=== PATIENT | female | born 1960 | race African-American/Black ===

== ENCOUNTER 2019-10-20 04:31 | Emergency (ER) | payer OTHER ==
[~2019-10-20] VITALS: Ht 167.6 cm; Wt 80.7 kg
[2019-10-20 05:27] VITALS: BP 144/99
== END 2019-10-20 05:49 | disposition home or self-care (01) ==
LOC: ER 04:37
DX: Z76.0 Encounter for issue of repeat prescription (principal); I10 Essential (primary) hypertension; Z98.890 Other specified postprocedural states; Z88.0 Allergy status to penicillin; Z88.6 Allergy status to analgesic agent

== ENCOUNTER 2019-11-16 12:07 | Emergency (ER) | payer OTHER ==
[~2019-11-16] VITALS: Ht 165.1 cm; Wt 81.6 kg
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
[2019-11-16] MEDS ORDERED: ACETAMINOPHEN 325 MG TABLET PO ONE (12:30)
[2019-11-16] MEDS ORDERED: ACETAMINOPHEN 325 MG TABLET ONE (13:02)
[2019-11-16] MEDS ORDERED: HYDROCODONE/APAP 5/325MG 1 EACH TABLET ONE (13:15)
[2019-11-16] MEDS ORDERED: HYDROCODONE/APAP 5/325MG 1 EACH TABLET PO ONE (13:30)
[2019-11-16 14:33] VITALS: BP 170/97
== END 2019-11-16 14:33 | disposition home or self-care (01) ==
LOC: ER 12:08
DX: S20.212A Contusion of left front wall of thorax, initial encounter (principal); S00.03XA Contusion of scalp, initial encounter; M25.561 Pain in right knee; I10 Essential (primary) hypertension; Z90.5 Acquired absence of kidney; Z88.0 Allergy status to penicillin; Z88.6 Allergy status to analgesic agent; V49.59XA Passenger injured in collision with other motor vehicles in traffic accident, initial encounter; Y93.89 Activity, other specified; Y92.488 Other paved roadways as the place of occurrence of the external cause; Y99.8 Other external cause status
CPT/HCPCS: 71100-TC; 73564-TC

== ENCOUNTER 2020-04-17 04:39 | Emergency (ER) | payer OTHER ==
[~2020-04-17] VITALS: Ht 165.1 cm; Wt 80.7 kg
[2020-04-17 04:53] VITALS: BP 142/75
--- NOTE | 2020-04-17 05:01 | NUR ---
PATIENT RECEIVED PRESCRIPTIONS SELENIUM SULFIDE 2.25% SHAMPOO AND POLTRIM [id number]
== END 2020-04-17 05:16 | disposition home or self-care (01) ==
LOC: ER 04:39
DX: Z76.0 Encounter for issue of repeat prescription (principal); Z98.890 Other specified postprocedural states; Z88.0 Allergy status to penicillin; Z88.6 Allergy status to analgesic agent

== ENCOUNTER 2020-04-17 21:50 | Emergency (ER) | payer OTHER ==
[~2020-04-17] VITALS: Ht 165.1 cm; Wt 80.7 kg
[2020-04-17 21:51] VITALS: BP 134/65
== END 2020-04-17 22:47 | disposition home or self-care (01) ==
LOC: ER 21:51
DX: R21 Rash and other nonspecific skin eruption (principal); Z76.0 Encounter for issue of repeat prescription; Z90.5 Acquired absence of kidney; Z88.0 Allergy status to penicillin; Z88.6 Allergy status to analgesic agent

== ENCOUNTER 2020-07-20 07:21 | Emergency (ER) | payer OTHER ==
[~2020-07-20] VITALS: Ht 170.2 cm; Wt 79.4 kg
[2020-07-20 07:30] VITALS: BP 156/88
--- NOTE | 2020-07-20 07:46 | NUR ---
Rx provided. Patient discharged to home in stable condition. Written and verbal after care instructions given. Patient verbalizes understanding of instruction.
== END 2020-07-20 07:48 | disposition home or self-care (01) ==
LOC: ER 07:28
DX: L03.90 Cellulitis, unspecified (principal); Z76.0 Encounter for issue of repeat prescription; Z90.5 Acquired absence of kidney; Z88.0 Allergy status to penicillin; Z88.6 Allergy status to analgesic agent

== ENCOUNTER 2021-02-07 05:58 | Emergency (ER) | payer OTHER ==
[~2021-02-07] VITALS: Ht 165.1 cm; Wt 72.6 kg
[2021-02-07 06:17] VITALS: BP 157/74
--- NOTE | 2021-02-07 06:20 | NUR ---
PT BIBSELF WANTING permetherin cream and azithromycin REFILL. PT AAOX4 BREATHING EVENLY AND UNLABORED. PT ATTACHED TO MONITOR AND POX. MD AT BEDSIDE FOR EVAL. UPON EVAL, PT SKIN IS WARM, DRY, AND INTACT EXCEPT FOR SOME BLEMISHES ON LOWER LEGS. PT GIVEN BALNKET AND CALL LIGHT WITHIN REACH
[2021-02-07] MEDS ORDERED: AZIT250T PO (06:54)
[2021-02-07] MEDS ORDERED: PERM60CR4 TP (06:54)
--- NOTE | 2021-02-07 07:00 | NUR ---
Patient discharged to home in stable condition. Written and verbal after care instructions given. Patient verbalizes understanding of instruction. Pt ambulatory with a steady gait
== END 2021-02-07 07:00 | disposition home or self-care (01) ==
LOC: ER 05:58
DX: J40 Bronchitis, not specified as acute or chronic (principal); F10.10 Alcohol abuse, uncomplicated; Y90.9 Presence of alcohol in blood, level not specified; Z76.0 Encounter for issue of repeat prescription; Z90.5 Acquired absence of kidney; Z88.0 Allergy status to penicillin; Z88.6 Allergy status to analgesic agent

== ENCOUNTER 2021-04-19 05:40 | Emergency (ER) | payer OTHER ==
[~2021-04-19] VITALS: Ht 167.6 cm; Wt 70.8 kg
[~2021-04-19 05:40] MED LIST: AZIT250T PO; PERM60CR4 TP
[2021-04-19 05:45] VITALS: BP 139/82
[2021-04-19] MEDS ORDERED: TETR-65 PO (06:13)
[2021-04-19] MEDS ORDERED: TETR-66 PO (06:15)
--- NOTE | 2021-04-19 06:27 | NUR ---
Patient discharged to home in stable condition. Written and verbal after care instructions given. Patient verbalizes understanding of instruction.
== END 2021-04-19 06:29 | disposition home or self-care (01) ==
LOC: ER 05:46
DX: J02.9 Acute pharyngitis, unspecified (principal); F10.10 Alcohol abuse, uncomplicated; Y90.9 Presence of alcohol in blood, level not specified; Z76.0 Encounter for issue of repeat prescription; Z85.3 Personal history of malignant neoplasm of breast; Z90.5 Acquired absence of kidney; Z88.0 Allergy status to penicillin; Z88.6 Allergy status to analgesic agent; Z79.899 Other long term (current) drug therapy

== ENCOUNTER 2021-05-16 06:55 | Emergency (ER) | payer OTHER ==
[~2021-05-16] VITALS: Ht 167.6 cm; Wt 70.8 kg
[2021-05-16 06:55] VITALS: BP 127/100
[~2021-05-16 06:55] MED LIST changes: +TETR-65 PO; +TETR-66 PO
--- NOTE | 2021-05-16 06:56 | NUR ---
TO ER BED 2, NEED MED REFILL, A&OX4, BREATHING EVENLY AND UNLABORED.
[2021-05-16] MEDS ORDERED: PERM60CR4 TP (07:26)
[2021-05-16] MEDS ORDERED: DEXAMETHASONE 4 MG TABLET ONE (07:34)
[2021-05-16] MEDS: DEXAMETHASONE SOLN 5 MG/5 ML UDC PO ONE (07:38)
== END 2021-05-16 07:49 | disposition home or self-care (01) ==
LOC: ER 06:57
DX: J02.9 Acute pharyngitis, unspecified (principal); R21 Rash and other nonspecific skin eruption; Z76.0 Encounter for issue of repeat prescription; Z90.5 Acquired absence of kidney; Z88.0 Allergy status to penicillin; Z88.6 Allergy status to analgesic agent; Z79.899 Other long term (current) drug therapy
CPT/HCPCS: 99283; J8540

== ENCOUNTER 2021-06-04 05:50 | Emergency (ER) | payer OTHER ==
[~2021-06-04] VITALS: Ht 165.1 cm; Wt 68.0 kg
[2021-06-04 05:53] VITALS: BP 155/87
[2021-06-04] MEDS ORDERED: AZIT250T13 PO (06:25)
== END 2021-06-04 06:30 | disposition home or self-care (01) ==
LOC: ER 05:50
DX: J02.9 Acute pharyngitis, unspecified (principal); R59.0 Localized enlarged lymph nodes; Z90.5 Acquired absence of kidney; Z98.890 Other specified postprocedural states; Z88.0 Allergy status to penicillin; Z88.6 Allergy status to analgesic agent; Z79.899 Other long term (current) drug therapy

== ENCOUNTER 2021-07-09 06:52 | Emergency (ER) | payer OTHER ==
[~2021-07-09] VITALS: Ht 165.1 cm; Wt 68.0 kg
[~2021-07-09 06:52] MED LIST changes: +AZIT250T13 PO
[2021-07-09 07:10] VITALS: BP 151/82
[2021-07-09] MEDS ORDERED: PERM60CR4 TP (07:19)
--- NOTE | 2021-07-09 07:23 | NUR ---
Patient discharged to home in stable condition. Written and verbal after care instructions given. Patient verbalizes understanding of instruction. Pt ambulatory with a steady gait
== END 2021-07-09 07:24 | disposition home or self-care (01) ==
LOC: ER 06:55
DX: R21 Rash and other nonspecific skin eruption (principal); Z76.0 Encounter for issue of repeat prescription; I10 Essential (primary) hypertension; Z98.890 Other specified postprocedural states; Z88.0 Allergy status to penicillin; Z88.6 Allergy status to analgesic agent; Z79.899 Other long term (current) drug therapy

== ENCOUNTER 2021-07-31 14:40 | Emergency (ER) | payer OTHER ==
--- NOTE | 2021-07-31 15:00 | NUR ---
CALLED TO TRIAGE,NO ANSWER
--- NOTE | 2021-07-31 15:10 | NUR ---
CALLED TO TRIAGE,NO ANSWER
--- NOTE | 2021-07-31 15:32 | NUR ---
CALLED TO TRIAGE,NO ANSWER
== END 2021-07-31 15:35 | disposition left against medical advice (07) ==
LOC: ER 15:02
DX: Z53.21 Procedure and treatment not carried out due to patient leaving prior to being seen by health care provider (principal)

== ENCOUNTER 2021-08-20 08:28 | Emergency (ER) | payer OTHER ==
[~2021-08-20] VITALS: Ht 165.1 cm; Wt 75.3 kg
--- NOTE | 2021-08-20 08:32 | NUR ---
PT CAME TOE R C/O OF SORE THROAT X 4 DAYS. ADMITS VOMITING, CHILLS. DENIES FEVER, SOB, OR DIFFICULTY SWALLOWING. PT ON CHEMO. AAOX4, AMBULATORY, BREATHING EVEN AND UNLABORED. SLIGHTLY SWOLLEN ANTERIOR CERVICAL LYMPH NODES. ABLE TO SPEAK CLEARLY. ASSISTED TO BED, ON MONITOR, GIVEN BLANKET, NEEDS MET. VS STABLE
[2021-08-20] MEDS ORDERED: CLIN150C16 PO (08:41)
[2021-08-20 08:54] VITALS: BP 108/69
== END 2021-08-20 08:55 | disposition home or self-care (01) ==
LOC: ER 08:32
DX: J02.9 Acute pharyngitis, unspecified (principal); Z76.0 Encounter for issue of repeat prescription; I10 Essential (primary) hypertension; Z98.890 Other specified postprocedural states; Z88.0 Allergy status to penicillin; Z88.6 Allergy status to analgesic agent; Z59.00 Homelessness unspecified; Z79.899 Other long term (current) drug therapy

== ENCOUNTER 2021-09-27 07:24 | Emergency (ER) | payer MEDICAID, OTHER ==
[~2021-09-27] VITALS: Ht 165.1 cm; Wt 93.0 kg
[~2021-09-27 07:24] MED LIST changes: +CLIN150C16 PO
[2021-09-27 07:43] VITALS: BP 181/95
--- NOTE | 2021-09-27 10:50 | NUR ---
Patient discharged to home in stable condition. Written and verbal after care instructions given. Patient verbalizes understanding of instruction.
== END 2021-09-27 11:02 | disposition home or self-care (01) ==
LOC: ER 07:36
DX: S70.01XA Contusion of right hip, initial encounter (principal); S89.81XA Other specified injuries of right lower leg, initial encounter; I10 Essential (primary) hypertension; Z98.890 Other specified postprocedural states; Z88.0 Allergy status to penicillin; Z88.6 Allergy status to analgesic agent; Z59.00 Homelessness unspecified; Z79.899 Other long term (current) drug therapy; W01.0XXA Fall on same level from slipping, tripping and stumbling without subsequent striking against object, initial encounter; Y93.89 Activity, other specified; Y92.89 Other specified places as the place of occurrence of the external cause; Y99.8 Other external cause status
CPT/HCPCS: 73502; 73564-TC

== ENCOUNTER 2021-10-17 00:02 | Emergency (ER) | payer MEDICAID ==
[~2021-10-17] VITALS: Ht 162.6 cm; Wt 68.0 kg
[2021-10-17 00:34] VITALS: BP 152/85
[2021-10-17] MEDS ORDERED: IBUPROFEN 400 MG TABLET ONE (00:56)
--- NOTE | 2021-10-17 00:59 | NUR ---
PT TAKEN TO RADIOLOGY VIA W/C
[2021-10-17] MEDS ORDERED: IBUPROFEN 400 MG TABLET PO ONE (01:00)
--- NOTE | 2021-10-17 02:43 | NUR ---
Patient does not wish to proceed with medical care recommended by Dr. Gaffney. Patient given information related to possible complications, up to and including , which could occur as a result of leaving the hospital at this time. Patient verbalizes understanding of risks involved due to leaving against medical advice. Patient has signed AMA form.
== END 2021-10-17 02:45 | disposition left against medical advice (07) ==
LOC: ER 00:02
DX: M25.562 Pain in left knee (principal); I10 Essential (primary) hypertension; Z85.3 Personal history of malignant neoplasm of breast; B35.9 Dermatophytosis, unspecified; Z90.5 Acquired absence of kidney; Z88.0 Allergy status to penicillin; Z88.5 Allergy status to narcotic agent; Z59.00 Homelessness unspecified; Z79.899 Other long term (current) drug therapy
CPT/HCPCS: 73564-TC